=== PATIENT | female | born 1985 | race Caucasian/White ===

== ENCOUNTER → 2017-01-02 | Outpatient (CLI) | payer BC ==
--- NOTE | 2017-01-02 16:49 | CONS ---
CONSULTATION REASON FOR CONSULTATION: Consultation note for sleep apnea. PRIMARY CARE: Dr. Trevor Bardales. HISTORY: A 31-year-old female patient, known history of multiple environmental allergies. The patient has perennial allergies and she has constant nasal stuffiness and postnasal drainage and her symptoms are typically worse around spring and she is on Flonase. She snores and recently there has been concern of obstructive sleep apnea. At times she has been told to quit breathing. No major hypersomnia or sleepiness. She works for the [employer] in [place] and she drives back and forth without having to fall asleep while driving. Nor has she got into a car accident because of feeling sleepy or drowsy. She goes to bed around 10:00 pm, wakes up 530-6 a.m. in the morning. The patient is feeling alert and awake. She is averaging about 6-7 hours of sleep per night. Her current [place] Score is at 9. No sleep paralysis. No hallucinations. No cataplexy. No recent weight gain. No other new complaints otherwise for now. PAST MEDICAL HISTORY: Perennial allergies. SURGICAL HISTORY: None. ALLERGIES: POLLEN, MOLDS, DUST, DANDER. OUTPATIENT MEDICATION: Include oral contraceptive pills and Flonase. FAMILY HISTORY: Family history negative for sleep apnea. Positive for coronary artery disease in grandfather and coronary artery disease and CVA in a grandmother. SOCIAL HISTORY: The patient is a nonsmoker. No history of alcohol. No history of IV drugs. REVIEW OF SYSTEMS: 12-point review of system was done. Positive findings are mentioned above in the history of present illness. No history of insomnia. No choking or gasping sensation for air. No grinding. No sleepwalking. No nightmares. No restlessness in the lower extremities. No sleep talking. No sweating. No panic attacks. No palpitation. No heartburn. No nocturia. No sexual dysfunction. PHYSICAL EXAMINATION: BP is 148/89, pulse 84, respirations 16, temp 98.4, weight is 136, height is 5 feet 0 inches, neck size 12-1/4 and BMI 26.5. General appearance is calm, comfortable. HEENT mild overbite. No goiter or neck masses. Mallampati class 3. LUNGS: Clear to auscultation. HEART: Sounds regular rhythm. Normal S1, S2. No murmurs. ABDOMEN: Soft, nontender. No organomegaly. EXTREMITIES: No edema. No cyanosis or clubbing. NEUROLOGIC: Alert and oriented x3. There is no focal neurological deficits. Psychiatrically: No anxiety or depression. No claustrophobia. IMPRESSION: 1. Obstructive sleep apnea suspected clinically under investigation. My overall suspicion is low. 2. Perennial rhinitis currently on Flonase. PLAN: We will proceed with a home sleep study and decide on treatment accordingly. The patient has good sleep hygiene measures. Encourage allergy control and continue treatment with Flonase to improve patency of the nasal passages and control the symptoms of chronic rhinitis. We will continue to follow and make further recommendations if CPAP treatment is needed. MMODL / IJN: [id number] /
== END | disposition home or self-care (01) ==
LOC: SLEEP 13:28
PROVIDERS: ATTEND Internal Medicine Critical Care Medicine
DX: J30.9 Allergic rhinitis, unspecified (principal)
CPT/HCPCS: 99211

== ENCOUNTER → 2018-06-21 | Outpatient (CLI) | payer BC ==
--- NOTE | 2018-06-24 07:43 | MM ---
Reason for exam: screening (asymptomatic). Baseline mammogram. History: Patient is nulliparous. Taking hormonal contraceptives beginning at age 17. Physical Findings: Nurse did not find any significant physical abnormalities on exam. MG 3D Screening Mammo W/Cad Bilateral CC, MLO, and XCCL view(s) were taken. The breast tissue is extremely dense which could obscure a lesion on mammography. No significant new findings when compared with previous films. These results were verbally communicated with the patient and result sheet given to the patient on 06/21/18. ASSESSMENT: Negative, BI-RAD 1 RECOMMENDATION: Routine screening mammogram of both breasts at age 38.
== END | disposition home or self-care (01) ==
LOC: RADMAMWWP 15:05
PROVIDERS: ATTEND Obstetrics & Gynecology
DX: Z12.31 Encounter for screening mammogram for malignant neoplasm of breast (principal)
CPT/HCPCS: 77063; 77067